=== PATIENT | female | born 1950 | race Caucasian/White ===

== ENCOUNTER 2017-06-23 10:47 | Outpatient (CLI) | payer BC ==
--- NOTE | 2017-06-23 15:58 | MMO ---
BILATERAL SCREENING MAMMOGRAMS: Date: 06/23/17 Comparison made to prior exams from 2011, 2013, and 2016. This patient's mammogram was interpreted with the assistance of computer-aided detection. FINDINGS: Scattered fibroglandular densities. No evidence of mass, distortion, or suspicious calcification. Th ere are a few scattered benign-appearing calcifications. No interval change identified. Recommend on e year follow-up. IMPRESSION: BIRADS 2: Benign Finding(s) POS: DEMARIO
--- NOTE | 2017-06-23 17:23 | BD ---
DEXA BONE DENSITOMETRY: (Dual energy X-ray Absorptiometry) DATE: 06/23/17 COMPARISON: 08/17/12. HISTORY: 66-year-old white female for follow-up postmenopausal, age-related osteoporosis screening examinatio n. Height: 65 Weight: 175 lbs Age of menopause: 41 years FINDINGS: The bone mineral density (BMD) is given in grams per square centimeter (g/cm2): LUMBAR SPINE: BMD(g/cm2) T-score Z-score L1: 1.042 0.5 2.1 L2: 1.103 0.7 2.5 L3: 1.192 1.0 2.9 L4: 1.442 3.5 5.4 Total: 1.213 1.5 3.3 Change in BMD compared to previous DEXA: +7.5% HIP: Femoral neck: 0.673 -1.6 0.0 Total: 0.821 -1.0 0.3 Change in BMD compared to previous DEXA: +1,3% FRAX WHO Fracture Risk Assessment Tool: 10 Year Fracture Risk * Major osteoporotic fracture: 11% Hip fracture: 1.5% Reported Risk Factors: [place](), Neck BMD=0.673, BMI=21.1, and alcohol use. * Fracture probability is calculated for an untreated patient. Fracture probability may be lower if the patient has received treatment. IMPRESSION: 1) The mean bone mineral density of the lumbar spine is normal. Fracture risk is not increased. 2) The bone mineral density of the femoral neck is osteopenic. Fracture risk is increased. MIKEY Goins POS: DEMARIO
--- NOTE | 2017-06-23 17:29 | CT ---
LOW DOSE NONCONTRAST CT SCAN THORAX 06/23/17 HISTORY: Patient with history of smoking. Patient quit smoking five years ago. FINDINGS: No discrete pulmonary nodule or mass is seen. There is no pleural effusion. Minimal biapical pleural and parenchymal scarring is present with minimal emphysematous changes at each lung apex. Vascular calcifications are seen in the coronary arteries as well as involving the thoracic aorta. T here is calcification of the mitral valve annulus. Vascular calcification also seen in the visualize d upper abdominal aorta. IMPRESSION: 1. Lung RADS - category 1, negative low dose CT scan for pulmonary nodules. Continued annual sc reening with low dose CT scan of thorax in 12 months is recommended. 2. Code S, minimal chronic lung changes at each lung apex. Vascular calcifications seen in the coronary arteries and thoracic aorta. POS: DEMARIO
== END 2017-06-23 10:48 | disposition home or self-care (01) ==
LOC: CT 10:47
PROVIDERS: ATTEND Family Medicine
DX: Z12.31 Encounter for screening mammogram for malignant neoplasm of breast (principal); Z78.0 Asymptomatic menopausal state; Z12.2 Encounter for screening for malignant neoplasm of respiratory organs; Z00.00 Encounter for general adult medical examination without abnormal findings; M85.859 Other specified disorders of bone density and structure, unspecified thigh; I70.0 Atherosclerosis of aorta; I25.10 Atherosclerotic heart disease of native coronary artery without angina pectoris; R91.8 Other nonspecific abnormal finding of lung field; Z87.891 Personal history of nicotine dependence
CPT/HCPCS: 77067; 77080; G0297; G0202

== ENCOUNTER 2019-03-26 08:49 | Outpatient (CLI) | payer BC ==
--- NOTE | 2019-03-26 10:04 | MMO ---
Bilateral MAMMO Bilat Screen [facility]. CLINICAL HISTORY: Patient is 68 years old and is seen for screening. The patient has no family history of breast cancer. The patient has no personal history of cancer. VIEWS: The views performed were: bilateral craniocaudal with tomosynthesis and bilateral mediolateral oblique with tomosynthesis. FILMS COMPARED: The present examination has been compared to prior imaging studies performed at [facility] on 08/17/2012, 05/12/2014, 09/21/2015 and 06/23/2017. MAMMOGRAM FINDINGS: There are scattered fibroglandular densities. Finding 1: There are stable benign appearing calcifications seen in both breasts. Finding 2: There are stable benign appearing densities seen in both breasts. There are no suspicious masses, suspicious calcifications, or new areas of architectural distortion. IMPRESSION: THERE IS NO MAMMOGRAPHIC EVIDENCE OF MALIGNANCY. A ROUTINE FOLLOW-UP MAMMOGRAM IN 1 YEAR IS RECOMMENDED. THE RESULTS OF THIS EXAM WERE SENT TO THE PATIENT. ACR BI-RADS Category 2 - Benign finding MAMMOGRAPHY NOTE: 1. A negative mammogram report should not delay a biopsy if a dominant of clinically suspicious mass is present. 2. Approximately 10% to 15% of breast cancers are not detected by mammography. 3. Adenosis and dense breasts may obscure an underlying neoplasm. Reported by: SUZE WHITAKER MD Electonically Signed: [id number]
== END 2019-03-26 08:50 | disposition home or self-care (01) ==
LOC: BICMAMMO 08:49
PROVIDERS: ATTEND Family Medicine
DX: Z12.31 Encounter for screening mammogram for malignant neoplasm of breast (principal)
CPT/HCPCS: 77063; 77067

== ENCOUNTER 2021-01-05 10:25 | Outpatient (CLI) | payer MEDICARE | END 2021-01-05 10:26 | disposition home or self-care (01) | LOC: NM 10:25 | PROVIDERS: ATTEND Family Medicine | DX: E21.0 Primary hyperparathyroidism (principal) | CPT/HCPCS: 78072; A9500 ==

== ENCOUNTER 2021-08-13 09:49 | Outpatient (CLI) | payer MEDICARE | END 2021-08-13 09:50 | disposition home or self-care (01) | LOC: BICMAMMO 09:49 | PROVIDERS: ATTEND Family Medicine | DX: Z12.31 Encounter for screening mammogram for malignant neoplasm of breast (principal) | CPT/HCPCS: 77063; 77067 ==

== ENCOUNTER 2022-05-14 12:51 | Outpatient (CLI) | payer MEDICARE | END 2022-05-14 12:52 | disposition home or self-care (01) | LOC: CT 12:51 | PROVIDERS: ATTEND Family Medicine | DX: R20.0 Anesthesia of skin (principal); R60.0 Localized edema; I65.21 Occlusion and stenosis of right carotid artery | CPT/HCPCS: 70450; 93880 ==

== ENCOUNTER 2022-11-19 09:56 | Outpatient (CLI) | payer MEDICARE | END 2022-11-19 09:57 | disposition home or self-care (01) | LOC: BICMAMMO 09:56 | PROVIDERS: ATTEND Family Medicine | DX: Z12.31 Encounter for screening mammogram for malignant neoplasm of breast (principal); R92.1 Mammographic calcification found on diagnostic imaging of breast | CPT/HCPCS: 77063; 77067 ==

== ENCOUNTER 2024-03-19 09:45 | Outpatient (CLI) | payer MEDICARE ==
[2024-03-19] MEDS ORDERED: Iopamidol 370 76% 100 ML VIAL ONE (11:42)
== END 2024-03-19 09:46 | disposition home or self-care (01) ==
LOC: BICCT 09:45
PROVIDERS: ATTEND Otolaryngology Plastic Surgery within the Head & Neck
DX: E21.3 Hyperparathyroidism, unspecified (principal); E04.1 Nontoxic single thyroid nodule
CPT/HCPCS: 70492; 82565; Q9967

== ENCOUNTER 2024-08-27 09:33 | Outpatient (CLI) | payer MEDICARE | END 2024-08-27 09:34 | disposition home or self-care (01) | LOC: ULT 09:33 | PROVIDERS: ATTEND Family Medicine | DX: R47.01 Aphasia (principal) | CPT/HCPCS: 93880 ==

== ENCOUNTER 2024-10-15 08:38 | Outpatient (CLI) | payer MEDICARE | END 2024-10-15 08:39 | disposition home or self-care (01) | LOC: BICCT 08:38 | PROVIDERS: ATTEND Family Medicine | DX: Z12.2 Encounter for screening for malignant neoplasm of respiratory organs (principal); Z87.891 Personal history of nicotine dependence; I25.10 Atherosclerotic heart disease of native coronary artery without angina pectoris | CPT/HCPCS: 71271 ==

== ENCOUNTER 2025-04-08 12:37 | Outpatient (CLI) | payer MEDICARE | END 2025-04-08 12:38 | disposition home or self-care (01) | LOC: CT 12:37 | PROVIDERS: ATTEND Family Medicine | DX: R41.82 Altered mental status, unspecified (principal); I25.10 Atherosclerotic heart disease of native coronary artery without angina pectoris; I25.83 Coronary atherosclerosis due to lipid rich plaque | CPT/HCPCS: 70450; 93880 ==